=== PATIENT | male | born 1960 | race Caucasian/White ===

== ENCOUNTER → 2016-09-10 | Outpatient (CLI) | payer BC ==
--- NOTE | 2016-09-10 17:17 | RAD ---
Indication: Generalized abdominal pain. Patient has history of polycystic kidney disease. Axial imaging through the abdomen and pelvis was performed without contrast. Comparison is made with prior CT from 08/10/2014. The lung bases are clear. Numerous rounded hepatic low densities are again noted consistent with cysts. Both kidneys are enlarged. Both kidneys contain numerous rounded masses consistent with autosomal dominant polycystic kidney disease. Multiple lesions are hyperdense consistent with hemorrhagic cysts. Tiny nonobstructing calculi are noted bilaterally. No definite hydronephrosis is seen. No adrenal mass is identified. The pancreas and spleen are unremarkable. The small and large bowel loops appear to be normal in caliber. Appendix is visualized in the right lower quadrant. No free fluid is detected. There are some fluid-filled small bowel loops throughout the abdomen but no focal transition point is detected and findings could be due to ileus. No free air is identified. No well-formed fluid collection is seen. The bladder is unremarkable. Impression: Polycystic hepatic and renal disease. There are some minimally prominent fluid-filled small bowel loops throughout the abdomen without evidence of focal transition. This could be owing to ileus. The study is otherwise unremarkable. PQRS Compliance Statement: One or more of the following individualized dose reduction techniques were utilized for this examination: 1. Automated exposure control 2. Adjustment of the mA and/or kV according to patient size 3. Use of iterative reconstruction technique
== END | disposition home or self-care (01) ==
LOC: RAD 16:48
PROVIDERS: ATTEND Family Medicine
DX: N28.9 Disorder of kidney and ureter, unspecified (principal); I10 Essential (primary) hypertension; Q61.3 Polycystic kidney, unspecified; Q44.6 Cystic disease of liver
CPT/HCPCS: 74176